=== PATIENT | female | born 1975 | race Caucasian/White ===

== ENCOUNTER 2020-04-28 18:45 | Inpatient (IN) | payer MEDICAID, OTHER, SELFPAY ==
[~2020-04-28] VITALS: Ht 167.6 cm; Wt 99.8 kg
[2020-04-28 20:49] LABS: BASOPHILS % 0.8 % (0.0-2.0); EOSINOPHILS % 1.5 % (0.0-5.0); HEMATOCRIT. 40.1 % (36.0-48.0); HEMOGLOBIN. 13.2 g/dL (12.0-16.0); LYMPHOCYTES % 38.9 % (20.0-50.0); MEAN CORPUSCULAR HEMOGLOBIN 28.2 pg (28.0-32.0); MEAN CORPUSCULAR VOLUME 85.4 fL (81.0-99.0); MONOCYTES % 7.6 % (2.0-8.0); NEUTROPHILS % 51.2 % (40.0-76.0); PLATELET 282 x1000/uL (130-400); RED CELL DISTRIBUTION WIDTH 13.3 % (11.6-14.6)
[2020-04-28 20:51] LABS: CHLORIDE 109 mEq/L (98-107)
[2020-04-28 20:55] LABS: HCG SCREEN NEGATIVE
[2020-04-28] MEDS ORDERED: MAGNESIUM/ALUMINUM HYDROXIDE/SIMETHICONE 30ML UDC PO PRN (22:30)
[2020-04-28] MEDS ORDERED: HYDROCODONE/ACETAMINOPHEN 5/325MG TABLET PO PRN (22:30)
[2020-04-28] MEDS ORDERED: DOCUSATE SODIUM 100MG CAPSULE PO PRN (22:30)
[2020-04-28] MEDS ORDERED: ENOXAPARIN 40MG/0.4ML SYR SUBCUT SCH (22:30)
[2020-04-28] MEDS ORDERED: GUAIFENESIN 200MG/10ML SUGAR FREE UDC PO PRN (22:30)
[2020-04-28] MEDS: ENOXAPARIN 30MG/0.3ML SYR SUBCUT SCH (22:30)
[2020-04-28] MEDS ORDERED: ONDANSETRON HCL 4MG/2ML INJ IV PRN (22:30)
[2020-04-28] MEDS ORDERED: CLONIDINE 0.1MG TABLET PO PRN (22:30)
[2020-04-29 04:49] LABS: BASOPHILS % 0.5 % (0.0-2.0); EOSINOPHILS % 1.8 % (0.0-5.0); HEMOGLOBIN. 13.1 g/dL (12.0-16.0); LYMPHOCYTES % 36.1 % (20.0-50.0); MEAN CORPUSCULAR HEMOGLOBIN 28.5 pg (28.0-32.0); MEAN CORPUSCULAR VOLUME 84.7 fL (81.0-99.0); MEAN PLATELET VOLUME 8.5 fl (7.4-10.4); MONOCYTES % 6.8 % (2.0-8.0); NEUTROPHILS % 54.8 % (40.0-76.0); PLATELET 272 x1000/uL (130-400); RED BLOOD CELL COUNT 4.61 mill/uL (4.2-5.4); RED CELL DISTRIBUTION WIDTH 13.2 % (11.6-14.6)
[2020-04-29 04:56] LABS: CHLORIDE 109 mEq/L (98-107)
[2020-04-29 05:04] LABS: LDL CHOLESTEROL 91 mg/dL (5-100)
[2020-04-29 05:05] LABS: CREATINE KINASE 50 IU/L (26-192); HDL CHOLESTEROL 52 mg/dL (40-59)
[2020-04-29] MEDS: AMLODIPINE 10MG TABLET PO SCH (10:00)
[2020-04-29] MEDS: ASPIRIN 81MG EC TABLET PO SCH (10:00)
[2020-04-29] MEDS: ENOXAPARIN 30MG/0.3ML SYR SUBCUT SCH ×2 (10:01→21:18)
[2020-04-29] MEDS: ACETAMINOPHEN 325MG TABLET PO PRN (14:26)
[2020-04-29 18:10] VITALS: BP 105/65
[2020-04-29 20:00] VITALS: BP 152/72
[2020-04-29] MEDS ORDERED: BENZONATATE 100MG CAPSULE PO PRN (21:00)
[2020-04-29] MEDS: PANTOPRAZOLE SODIUM 40 MG/VIAL IV SCH (21:18)
[2020-04-30] VITALS: BP 146/68
[2020-04-30 04:00] VITALS: BP 126/72
[2020-04-30] MEDS: ACETAMINOPHEN 325MG TABLET PO PRN ×2 (05:27→14:18)
[2020-04-30 08:00] VITALS: BP 115/56
[2020-04-30] MEDS: ASPIRIN 81MG EC TABLET PO SCH (08:49)
[2020-04-30] MEDS: AMLODIPINE 10MG TABLET PO SCH (08:50)
[2020-04-30] MEDS: ENOXAPARIN 30MG/0.3ML SYR SUBCUT SCH ×2 (08:52→22:18)
[2020-04-30] MEDS: PANTOPRAZOLE SODIUM 40 MG/VIAL IV SCH (08:52)
[2020-04-30] MEDS ORDERED: POTASSIUM CHLORIDE 20MEQ TABLET SR PO NR (09:15)
[2020-04-30 11:29] LABS: CHLORIDE 106 mEq/L (98-107)
[2020-04-30 12:00] VITALS: BP 126/79
[2020-04-30 16:04] VITALS: BP 108/68
[2020-04-30 20:24] VITALS: BP 120/71
[2020-05-01 00:41] VITALS: BP 113/63
[2020-05-01 04:00] VITALS: BP 132/72
[2020-05-01 08:00] VITALS: BP 128/74
[2020-05-01] MEDS ORDERED: FAMOTIDINE 20MG TABLET PO SCH (09:00)
[2020-05-01] MEDS: ENOXAPARIN 30MG/0.3ML SYR SUBCUT SCH (09:06)
[2020-05-01] MEDS: AMLODIPINE 10MG TABLET PO SCH (09:06)
[2020-05-01] MEDS: ASPIRIN 81MG EC TABLET PO SCH (09:06)
[2020-05-01 10:04] VITALS: BP 128/74
== END 2020-05-01 11:38 | disposition home or self-care (01) | DRG 137 ==
LOC: ER 18:45 → MICUSO 21:27 → 7WST 04-29 15:13
PROVIDERS: ADMIT Hospitalist; ATTEND Hospitalist
DX: U07.1 COVID-19 (principal); J96.00 Acute respiratory failure, unspecified whether with hypoxia or hypercapnia; J12.89 Other viral pneumonia; K21.9 Gastro-esophageal reflux disease without esophagitis; I10 Essential (primary) hypertension; F17.200 Nicotine dependence, unspecified, uncomplicated; Z86.73 Personal history of transient ischemic attack (TIA), and cerebral infarction without residual deficits; J20.8 Acute bronchitis due to other specified organisms; Z79.82 Long term (current) use of aspirin; Z79.899 Other long term (current) drug therapy
CPT/HCPCS: 36415; 71045; 80048; 80053; 80061; 82550; 84484; 84703; 85025; 93005; 93970; 96372; 99285; C9113; J1650; U0003-CS